=== PATIENT | female | born 1975 | race Caucasian/White ===

== ENCOUNTER → 2024-08-09 17:53 | Outpatient (REF) | payer BC, SELFPAY | LOC: WDC 17:53 | PROVIDERS: ATTENDING PHYSICIAN Hospitalist; FAMILY PHYSICIAN Nurse Practitioner | DX: Z12.31 Encounter for screening mammogram for malignant neoplasm of breast (principal) | CPT/HCPCS: 77063; 77067 ==

== ENCOUNTER 2025-03-30 06:36 | Day surgery (SDC) | payer BC, SELFPAY | END 2025-03-30 13:42 | disposition home or self-care (01) | LOC: GI 06:36 | PROVIDERS: ATTENDING PHYSICIAN Internal Medicine Gastroenterology | DX: K62.5 Hemorrhage of anus and rectum (principal); K64.8 Other hemorrhoids; K63.5 Polyp of colon | CPT/HCPCS: 45380; 88305 ==

== ENCOUNTER → 2025-08-15 17:46 | Outpatient (REF) | payer BC, SELFPAY | LOC: WDC 17:46 | PROVIDERS: ATTENDING PHYSICIAN Obstetrics & Gynecology; FAMILY PHYSICIAN Hospitalist | DX: Z12.31 Encounter for screening mammogram for malignant neoplasm of breast (principal) | CPT/HCPCS: 77063; 77067 ==